=== PATIENT | female | born 1975 | race Asian ===

== ENCOUNTER 2021-11-20 19:56 | Emergency (ER) | payer BC ==
[~2021-11-20] VITALS: Ht 157.5 cm; Wt 85.7 kg
[2021-11-20 21:54] VITALS: BP 188/75; TEMP 98
== END 2021-11-20 22:04 | disposition home or self-care (01) ==
LOC: ED 19:56
DX: T63.391A Toxic effect of venom of other spider, accidental (unintentional), initial encounter (principal); L03.115 Cellulitis of right lower limb; X58.XXXA Exposure to other specified factors, initial encounter; Y92.89 Other specified places as the place of occurrence of the external cause
CPT/HCPCS: 96372; 99283; J0696; J1885